=== PATIENT | female | born 1995 | race Two or more races ===

== ENCOUNTER 2018-03-17 15:56 | Inpatient (IN) | payer OTHER, SELFPAY ==
[2018-03-17 17:30] LABS: CONTROL LINE HCG INT CTR LINE PRESENT; HCG, SERUM QUALITATIVE NEGATIVE (NEGATIVE)
[2018-03-17 17:42] LABS: HEMATOCRIT 36.1 % (36.0-47.0); HEMOGLOBIN 11.2 g/dl (12.0-15.5); MEAN CORPUSCULAR HEMOGLOBIN 27.8 pg (27.0-33.0); MEAN CORPUSCULAR VOLUME 89.6 fl (80.0-96.0); PLATELET COUNT, AUTOMATED 255 10^3/uL (150-450); RED BLOOD COUNT 4.03 10^6/uL (4.00-5.40); RED CELL DISTRIBUTION WIDTH 13.7 % (11.5-14.5); WHITE BLOOD COUNT 7.8 10^3/uL (4.0-10.0)
[2018-03-17 17:44] LABS: ALBUMIN 3.8 GM/DL (3.2-5.2); ALBUMIN/GLOBULIN RATIO 1.06 (1.00-1.93); ALKALINE PHOSPHATASE 65 U/L (45-117); ALT/SGPT 16 U/L (12-78); ANION GAP 4 MEQ/L (8-16); AST/SGOT 9 U/L (7-37); BILIRUBIN,DIRECT < 0.1 MG/DL (0.0-0.2); BILIRUBIN,TOTAL 0.2 MG/DL (0.2-1.0); BLOOD UREA NITROGEN 14 MG/DL (7-18); CARBON DIOXIDE LEVEL 29 MEQ/L (21-32); CHLORIDE LEVEL 106 MEQ/L (98-107); ETHYL ALCOHOL (ETHANOL) < 0.003 % (0.000-0.010); GLUCOSE, FASTING 82 MG/DL (70-100); POTASSIUM SERUM 4.4 MEQ/L (3.5-5.1); SALICYLATE LEVEL < 1.7 MG/DL (5.0-30.0); SODIUM LEVEL 139 MEQ/L (136-145); TOTAL PROTEIN 7.4 GM/DL (6.4-8.2)
[2018-03-17 17:48] LABS: ACETAMINOPHEN LEVEL < 2.0 UG/ML (10.0-30.0)
[2018-03-17 18:01] LABS: AMPHETAMINES LEVEL URINE NEGATIVE (NEGATIVE); BARBITURATES URINE NEGATIVE (NEGATIVE); BENZODIAZEPINES URINE NEGATIVE (NEGATIVE); CANNABINOIDS URINE POSITIVE (NEGATIVE); COCAINE METABOLITE URINE NEGATIVE (NEGATIVE); METHADONE URINE NEGATIVE (NEGATIVE); OPIATES URINE NEGATIVE (NEGATIVE); PHENCYCLIDINE URINE NEGATIVE (NEGATIVE)
[2018-03-17] MEDS ORDERED: MOM 30ML SUSPENSION UDC PO ×2 (18:45)
[2018-03-17] MEDS ORDERED: MAALOX 30 ML SUSP *UDC PO ×2 (18:45)
[2018-03-17] MEDS ORDERED: ACETAMINOPHEN TAB 650MG DOSE (2X325MG) PO ×2 (18:45)
[2018-03-17] MEDS ORDERED: LORazepam 2 MG TAB PO ×2 (18:45)
[2018-03-17] MEDS: THIAMINE 100 MG TAB PO ×2 (19:25)
[2018-03-18] MEDS: THIAMINE 100 MG TAB PO ×4 (09:15→21:59)
[2018-03-18] MEDS: FOLIC ACID 1 MG TAB PO ×2 (09:15)
[2018-03-18] MEDS: MULTIVITAMINS/MINERALS THERAP 1 TAB PO ×2 (09:15)
[2018-03-18] MEDS: CitaloPRAM (CeleXA) 20 MG TAB PO ×2 (16:48)
[2018-03-19] MEDS: THIAMINE 100 MG TAB PO ×4 (08:14→20:59)
[2018-03-19] MEDS: MULTIVITAMINS/MINERALS THERAP 1 TAB PO ×2 (08:14)
[2018-03-19] MEDS: FOLIC ACID 1 MG TAB PO ×2 (08:14)
[2018-03-19] MEDS: CitaloPRAM (CeleXA) 20 MG TAB PO ×2 (15:08)
[2018-03-20] MEDS: THIAMINE 100 MG TAB PO ×2 (08:11)
[2018-03-20] MEDS: CitaloPRAM (CeleXA) 20 MG TAB PO ×2 (08:11)
[2018-03-20] MEDS: FOLIC ACID 1 MG TAB PO ×2 (08:11)
[2018-03-20] MEDS: MULTIVITAMINS/MINERALS THERAP 1 TAB PO ×2 (08:11)
[2018-03-20] MEDS: traZODone 50 MG TAB PO ×2 (22:48)
[2018-03-21] MEDS: MULTIVITAMINS/MINERALS THERAP 1 TAB PO ×2 (09:14)
[2018-03-21] MEDS: CitaloPRAM (CeleXA) 20 MG TAB PO ×2 (09:15)
[2018-03-21] MEDS: FOLIC ACID 1 MG TAB PO ×2 (09:15)
[2018-03-22] MEDS: FOLIC ACID 1 MG TAB PO ×2 (08:45)
[2018-03-22] MEDS: MULTIVITAMINS/MINERALS THERAP 1 TAB PO ×2 (08:45)
[2018-03-22] MEDS: CitaloPRAM (CeleXA) 10 MG TABLET PO ×2 (08:45)
[2018-03-22 14:37] LABS: BASO # 0.1 10^3/uL (0.0-0.2); BASO % 0.7 % (0.0-1.0); EOS # 0.1 10^3/uL (0.0-0.50); EOS % 1.2 % (0.0-3.0); HEMATOCRIT 37.7 % (36.0-47.0); HEMOGLOBIN 11.9 g/dl (12.0-15.5); IMMATURE GRANULOCYTE % 0.3 % (0-3.0); LYMPH # 2.4 10^3/uL (1.5-6.5); LYMPH % 30.8 % (24.0-44.0); MEAN CORPUSCULAR HGB CONC 31.6 g/dl (32.0-36.5); MEAN CORPUSCULAR VOLUME 88.7 fl (80.0-96.0); MONO # 0.6 10^3/uL (0.0-0.8); MONO % 7.3 % (0.0-5.0); NEUTROPHILS # 4.6 10^3/uL (1.8-7.7); NEUTROPHILS % 59.7 % (36.0-66.0); PLATELET COUNT, AUTOMATED 233 10^3/uL (150-450); RED BLOOD COUNT 4.25 10^6/uL (4.00-5.40); RED CELL DISTRIBUTION WIDTH 13.9 % (11.5-14.5); WHITE BLOOD COUNT 7.6 10^3/uL (4.0-10.0)
[2018-03-22 15:01] LABS: ALBUMIN 3.8 GM/DL (3.2-5.2); ALBUMIN/GLOBULIN RATIO 1.06 (1.00-1.93); ALKALINE PHOSPHATASE 52 U/L (45-117); ALT/SGPT 11 U/L (12-78); ANION GAP 7 MEQ/L (8-16); AST/SGOT 10 U/L (7-37); BILIRUBIN,TOTAL 0.2 MG/DL (0.2-1.0); BLOOD UREA NITROGEN 16 MG/DL (7-18); CALCIUM LEVEL 8.8 MG/DL (8.5-10.1); CARBON DIOXIDE LEVEL 28 MEQ/L (21-32); CHLORIDE LEVEL 105 MEQ/L (98-107); CREATININE FOR GFR 0.94 MG/DL (0.55-1.30); GLUCOSE, FASTING 88 MG/DL (70-100); POTASSIUM SERUM 4.3 MEQ/L (3.5-5.1); SODIUM LEVEL 140 MEQ/L (136-145); TOTAL PROTEIN 7.4 GM/DL (6.4-8.2)
[2018-03-22] MEDS: traZODone 50 MG TAB PO ×2 (22:28)
[2018-03-23] MEDS: FOLIC ACID 1 MG TAB PO ×2 (08:29)
[2018-03-23] MEDS: MULTIVITAMINS/MINERALS THERAP 1 TAB PO ×2 (08:30)
[2018-03-23] MEDS: CitaloPRAM (CeleXA) 10 MG TABLET PO ×2 (08:30)
== END 2018-03-23 09:55 | disposition home or self-care (01) | DRG 885 ==
LOC: M ED 15:56 → M ED INP 18:33 → M PSY 20:21
DX: F33.2 Major depressive disorder, recurrent severe without psychotic features (principal); F10.10 Alcohol abuse, uncomplicated; F60.3 Borderline personality disorder; F34.1 Dysthymic disorder; Z91.5 Personal history of self-harm; Z81.3 Family history of other psychoactive substance abuse and dependence; Z81.8 Family history of other mental and behavioral disorders; Z81.1 Family history of alcohol abuse and dependence

== ENCOUNTER 2018-09-02 19:07 | Emergency (ER) | payer OTHER, SELFPAY ==
[2018-09-02] MEDS ORDERED: NS 1,000 ML IV (20:30)
== END 2018-09-02 21:04 | disposition home or self-care (01) ==
LOC: M ED 19:07
DX: E86.0 Dehydration (principal)
CPT/HCPCS: 99284

== ENCOUNTER 2019-02-17 05:51 | Inpatient (IN) | payer OTHER ==
[~2019-02-17] VITALS: Ht 160 cm; Wt 70.2 kg
[2019-02-17] VITALS (37 sets, daily range): BP systolic 106–147; BP diastolic 57–92
[~2019-02-17 05:51] MED LIST: CELE10TA PO; FOLI1TAB11 PO; VITMTA PO
[2019-02-17] MEDS ORDERED: LACTATED RINGER'S 1000 ML IV STA (06:21)
[2019-02-17 06:36] LABS: HEMATOCRIT 28.6 % (36.0-47.0); HEMOGLOBIN 8.7 g/dl (12.0-15.5); MEAN CORPUSCULAR HEMOGLOBIN 26.1 pg (27.0-33.0); MEAN CORPUSCULAR HGB CONC 30.4 g/dl (32.0-36.5); MEAN CORPUSCULAR VOLUME 85.9 fl (80.0-96.0); PLATELET COUNT, AUTOMATED 228 10^3/uL (150-450); RED BLOOD COUNT 3.33 10^6/uL (4.00-5.40)
[2019-02-17] MEDS ORDERED: miSOPROStol 25 MCG 1/4 TAB (S0191) PO ONE (07:45)
--- NOTE | 2019-02-17 08:17 | HPEPDOC ---
Obstetrical History & Physical General Date of Admission February 17, 2019 at 05:51 History of Present Illness 23 yo at 41+1 weeks gestation by 8+4 week US on [id number] presents to L&D for an IOL for late term . She reports feeling well this AM and denies any complaints. Her is uncomplicated. Chief Complaint: Induction of labor Information Provided By: Patient Age: 23 : 1 Term: 0 Pre-term: 0 Abortions: 0 Livin Care Care: Good Care Dating Final EDC: February 09, 2019 Final EDC for Daily Update: February 09, 2019 Final EDC by: LMP, 1st trimester (US) (ALONDRA of [id number] by 8+4 week US on [id number]) 1st Trimester Date: Jul 04, 2018 Antepartum Course Diagnos(e)s Rh negative --> FOB Rh negative as well. Patient has received rhogam though History of depression ---> self DC'ed celexa in early and has been stable. Past Medical History Past Obstetrical History : Past Obstetrical History: Primgravida CLASSIFIED AD TAKER History: No pertinent history Past Medical History Medical History Rh negative History of depression Surgical History: Denies/None Family History Significant Family History: No pertinent family hx Family History Non contributory Social History Marital Status: Family situation: Spouse/partner home Psychosocial History: Depression (History of depression. Stable without meds) * Smoker: non-smoker Alcohol: Denies Drugs: denies Imunizations Tdap status: current Influenza Status: needs Allergies Coded Allergies: No Known Allergies (Unverified , 02/17/19) Medications Scheduled Citalopram Hydrobromide (Celexa) 10 Mg Tab, 10 MG PO QAM for depression Folic Acid (Folic Acid) 1 Mg Tab, 1 MG PO DAILY for withdrawals Multivitamins (Thera M Plus Tablet) 1 Tab Tab, 1 TAB PO DAILY for withdrawals Physical Examination Physical Examination GENERAL: Alert and oriented times three. ABDOMEN: Gravid and non-tender to touch. FETUS: Is vertex (VTX) by sterile vaginal examination (SVE) EXTREMITIES: No edema. Vital Signs/I&O Vital Signs Date Time Temp Pulse Resp B/P (MAP) Pulse Ox O2 Delivery O2 Flow Rate FiO2 02/17/19 07:15 98.4 78 16 122/74 (90) Laboratory Data 24H LABS Laboratory Tests 2 02/17/19 05:55: Serology Scanned Report Hepatitis B Testing 02/17/19 06:24: Nucleated Red Blood Cells % (auto) 0.2H CBC/BMP Laboratory Tests 02/17/19 06:24 Red Blood Count 3.33 L, Mean Corpuscular Volume 85.9, Mean Corpuscular Hemoglobin 26.1 L, Mean Corpuscular Hemoglobin Concent 30.4 L, Red Cell Distribution Width 16.2 H Pertinent Laboratoy Data Blood Type: O- RBC Antibody Screen: Negative HIV: Negative Hepatitis B: Negative Hepatitis C: Unknown Rapid Plasma Reagin: Nonreactive Rubella: Immune Varicella: Nonreactive (Patient listed as varicella immune, however varicella IgG was negative) Chlamydia/Gonorrhea: Negative Group B Streptococcus: Negative Quad Screen Test: Unknown Cystic Fibrosis: Unknown Glucose Tolerance Test: 121 Anatomy Ultrasound Placenta Location: Posterior Normal Anatomy: Yes Placenta Previa: No Vaginal Examination Dilation: 1cm Effacement: 30% Station: -3 Cervical Consistency: Firm Cervical Position: Posterior Presentation: Cephalic presentation Position: Vertex (occiput) Assessment Heart Rate (FHR): 120 Variability: Moderate Accelerations: Positive Decelerations: None Tocometer Contractions: Yes Frequency: irregular Duration: less than 60 seconds Strength: palpated as mild Assessment/Plan Assessment 23 yo at 41+1 weeks gestation presents for an IOL for late term . Plan Admit for IOL. Apply IV fluids. GBS negative. Clear liquid diet. Cervix unfavorable. Membrane stripping performed and then PO cytotec administered. Patient may have epidural if desired. Anticipate . DO RADHA Tello CHRISTOPHER J. DO February 17, 2019 08:17
[2019-02-17] MEDS ORDERED: miSOPROStol 50 MCG 1/2 TAB (S0191) PO PRN (09:45)
[2019-02-17] MEDS ORDERED: LR 1,000 ML IV SCH (14:14)
[2019-02-17] MEDS ORDERED: OXYTOCIN DRIP 30 UNITS in APPROPRIATE DILUENT 1 EA IV SCH (14:15)
[2019-02-17] MEDS ORDERED: FENTANYL 2MCG/ML ROPIVACAINE 0.2% IN 0.9% NACL 100ML IVBAG As Ordered ONE (16:20)
[2019-02-17] MEDS ORDERED: EPIDURAL/PCA KEYS XX PRN (17:45)
[2019-02-17] MEDS ORDERED: NALOXONE INJ 0.4 MG/1 ML VIAL (J2310) IV PRN (17:45)
[2019-02-17] MEDS ORDERED: ePHEDrine SULFATE 25 MG/5 ML(5MG/ML) SYRINGE IV PRN (17:45)
[2019-02-17] MEDS ORDERED: ONDANSETRON 4MG/2ML VIAL (J2405) IV PRN (17:45)
[2019-02-17] MEDS ORDERED: EPIDURAL COMMENT XX SCH (17:45)
[2019-02-17] MEDS ORDERED: diphenhydrAMINE INJ 50MG/ML VIAL (J1200) IV PRN (17:45)
[2019-02-17] MEDS ORDERED: FENTANYL/ROPIVACAINE/NACL BAG 100 ML EPIDURAL SCH (17:45)
[2019-02-17] MEDS ORDERED: LACTATED RINGER'S 1000 ML IV PRN (17:45)
[2019-02-17] MEDS ORDERED: REFRIGERATOR IV KEYS XX PRN (17:45)
--- NOTE | 2019-02-17 19:05 | IPNPDOC ---
Text Note Date of Service The patient was seen on 02/17/19. NOTE Cat 1 NST throughout other than 3 lates that reponded to fluid and pos change in the last hour Pitocin at 8 mu/min. 4-5 hrs ago was a tight 3 cm with a ballotable vtx, 3 hrs ago transitioned from 2 doses miso to pitocin. Now on 8 mu/min. Cx now 3-4/75/-2, vtx well applied now. Recheck in 3-4 hrs, sooner prn Sessions A-FIB/PRATIBHA A-FIB History Current/History of A-Fib/PAF?: No VS,Fishbone, I+O VS, Fishbone, I+O Laboratory Tests 02/17/19 06:24 Red Blood Count 3.33 L, Mean Corpuscular Volume 85.9, Mean Corpuscular Hemoglobin 26.1 L, Mean Corpuscular Hemoglobin Concent 30.4 L, Red Cell Distribution Width 16.2 H Vital Signs Date Time Temp Pulse Resp B/P (MAP) Pulse Ox O2 Delivery O2 Flow Rate FiO2 02/17/19 18:04 80 112/71 (85) 02/17/19 17:07 99.4 16 SESSIONS,MARYSE Coyne MD February 17, 2019 19:05
--- NOTE | 2019-02-17 22:39 | IPNPDOC ---
Text Note Date of Service The patient was seen on 02/17/19. NOTE Cat 2 NST due to some positional lates, but none for some time, mod amaris Pitocin at 8 mu/min. Cx now 4-/-1, vtx well applied now, AROM but with very little fluid, vtx well applied, likely SROM earlier wih little fluid noted Recheck in ~2 hrs, sooner prn Sessions A-FIB/PRATIBHA A-FIB History Current/History of A-Fib/PAF?: No VS,Fishbone, I+O VS, Fishbone, I+O Laboratory Tests 02/17/19 06:24 Red Blood Count 3.33 L, Mean Corpuscular Volume 85.9, Mean Corpuscular Hemoglobin 26.1 L, Mean Corpuscular Hemoglobin Concent 30.4 L, Red Cell Distribution Width 16.2 H Vital Signs Date Time Temp Pulse Resp B/P (MAP) Pulse Ox O2 Delivery O2 Flow Rate FiO2 02/17/19 18:04 80 112/71 (85) 02/17/19 17:07 99.4 16 SESSIONS,MARYSE Coyne MD February 17, 2019 22:39
[2019-02-18] VITALS (16 sets, daily range): BP systolic 106–149; BP diastolic 57–96
--- NOTE | 2019-02-18 02:06 | IPNPDOC ---
Text Note Date of Service The patient was seen on 02/18/19. NOTE FHT Cat 2, mod amaris but intermittent isolated lates, pos accels still Pit at 10, reg ctx's Cx /0 Doing well, rechec in 2 hrs, sooner prn Sessions A-FIB/PRATIBHA A-FIB History Current/History of A-Fib/PAF?: No VS,Fishbone, I+O VS, Fishbone, I+O Laboratory Tests 02/17/19 06:24 Red Blood Count 3.33 L, Mean Corpuscular Volume 85.9, Mean Corpuscular Hemoglobin 26.1 L, Mean Corpuscular Hemoglobin Concent 30.4 L, Red Cell Distribution Width 16.2 H Vital Signs Date Time Temp Pulse Resp B/P (MAP) Pulse Ox O2 Delivery O2 Flow Rate FiO2 02/17/19 22:45 81 18 121/73 (89) 02/17/19 22:02 99.4 I&O- Last 24 Hours up to 6 AM 02/18/19 06:00 Intake Total 4022 ml Output Total 1650 ml Balance 2372 ml MINERVA,MARYSE Coyne MD February 18, 2019 02:05
[2019-02-18] MEDS ORDERED: OXYTOCIN DRIP 30 UNITS in APPROPRIATE DILUENT 1 EA IV SCH (04:03)
--- NOTE | 2019-02-18 04:12 | DNPDOC ---
[facility] Delivery Note Delivery Note DATE OF DELIVERY: [id number] PREDELIVERY DIAGNOSIS: 41 2/7 weeks' gestation and labor. POST DELIVERY DIAGNOSIS: Delivered. 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 Palma ANESTHESIA: epidural ESTIMATED BLOOD LOSS: 200 mL. FINDINGS: weight pending female , Score 8/9 DELIVERY SUMMARY: Called to room, C/C/pushing well. Straight OA. Del'd the vtx and both shoulders w/o delay, term. mec. noted. Vigorous female to abd. Cord C/C by FOB. Cord blood. Placenta intact, fundal massage, firm, pit going 999. Bilat vag wall abrasions closed with 4-0 vicryl. Good hemostasis, cosmesis. Sessions MD PALMA,MARYSE Coyne MD February 18, 2019 04:12
[2019-02-18] MEDS ORDERED: IBUPROFEN 800 MG TAB PO PRN (04:15)
[2019-02-18] MEDS ORDERED: ACETAMINOPHEN TAB 650MG DOSE (2X325MG) PO PRN (04:15)
[2019-02-18] MEDS ORDERED: DIBUCAINE 1% OINTMENT 30GM TOP PRN (04:15)
[2019-02-18] MEDS ORDERED: MEASLES,MUMPS,RUBELLA VACCINE INJ (MMR-II) (90707) SC SCH (04:15)
[2019-02-18] MEDS ORDERED: RHOGAM 300 MCG (1500 IU) INJ (J2790) IM SCH (04:15)
[2019-02-18] MEDS: DOCUSATE SODIUM 100 MG CAP PO SCH ×2 (09:18→21:15)
[2019-02-18] MEDS: PRENATAL VITAMINS CHEWABLE TABLET PO SCH (09:18)
[2019-02-18] MEDS: CitaloPRAM (CeleXA) 10 MG TABLET PO SCH (11:45)
[2019-02-19 06:07] VITALS: BP 120/55
--- NOTE | 2019-02-19 06:39 | IPNPDOC ---
Text Note Date of Service The patient was seen on 02/19/19. NOTE PPD1 States feeling well, pain controlled with prescribed meds. Baby bonding and feeding well. No heavy VB. Lochia slowing. Ambulatory. Tolerating PO without issues. Voiding spont. No CP/LP/SOB. VSSAF NAD A&O LE no C/C/E Ut at U-2, firm a/p: Doing well. Cont routine care. D/C likely tomorrow or the next day. Sessions A-FIB/PRATIBHA A-FIB History Current/History of A-Fib/PAF?: No VS,Fishbone, I+O VS, Fishbone, I+O Vital Signs Date Time Temp Pulse Resp B/P (MAP) Pulse Ox O2 Delivery O2 Flow Rate FiO2 02/19/19 06:07 97.8 69 18 120/55 (76) 02/18/19 18:00 98 SESSIONS,MARYSE Coyne MD February 19, 2019 06:39
[2019-02-19] MEDS: DOCUSATE SODIUM 100 MG CAP PO SCH ×2 (08:16→21:00)
[2019-02-19] MEDS: CitaloPRAM (CeleXA) 10 MG TABLET PO SCH (08:16)
[2019-02-19] MEDS: PRENATAL VITAMINS CHEWABLE TABLET PO SCH (08:16)
[2019-02-19 17:26] VITALS: BP 111/65
[2019-02-20 03:20] VITALS: BP 116/61
[2019-02-20 06:15] VITALS: BP 133/65
--- NOTE | 2019-02-20 08:09 | IPNPDOC ---
Progress Note Date of Service: February 20, 2019 Day#: 2 Progress Note SUBJECT: Lawrence is a 23yo [id number] s/p uncomplicated at 41w3d on 02/18 at 03:41 after undergoing IOL for LTG, doing well day # 2. She has been ambulating, voiding spontaneously without issue and tolerating regular diet. Breast feeding without issue. Reports lochia is like a light period. No f/c/n/v/CP/SOB. OBJECTIVE: VITAL SIGNS: Within normal limits, afebrile. Alert and oriented times three. Abdomen: Fundus firm at U-2. Soft, NTTP. ASSESSMENT: Lawrence is a 23yo [id number] s/p uncomplicated at 41w3d on 02/18 at 03:41 after undergoing IOL for LTG, doing well day # 2. Vitals within normal limits, afebrile, hemodynamically stable with no evidence of infection. PLAN: 1. Discharge to home today. 2. Tylenol and Motrin for pain. 3. Encourage breast feeding and ambulation. 4. 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 Routine PP visit in 6 weeks in clinic. 6. Discussed return precautions at length. Dr. Julieta Frederick MD VS, I&O, 24H, Fishbone Vital Signs/I&O Vital Signs Date Time Temp Pulse Resp B/P (MAP) Pulse Ox O2 Delivery O2 Flow Rate FiO2 02/20/19 06:15 98.4 87 17 133/65 (87) 98 Julieta Frederick MD February 20, 2019 08:09
[2019-02-20] MEDS ORDERED: IBUP80TA PO (08:13)
[2019-02-20] MEDS: DOCUSATE SODIUM 100 MG CAP PO SCH (09:35)
[2019-02-20] MEDS: PRENATAL VITAMINS CHEWABLE TABLET PO SCH (09:35)
[2019-02-20] MEDS: CitaloPRAM (CeleXA) 10 MG TABLET PO SCH (09:36)
== END 2019-02-20 11:20 | disposition home or self-care (01) | DRG 807 ==
LOC: M LDI 05:51 → M OBS 02-18 06:16
PROVIDERS: ADMIT Obstetrics & Gynecology; ATTEND Obstetrics & Gynecology
PROC: 3E033VJ Introduction of Other Hormone into Peripheral Vein, Percutaneous Approach (ICD-10-PCS; 2019-02-17)
PROC: 10E0XZZ Delivery of Products of Conception, External Approach (ICD-10-PCS; principal; 2019-02-18)
DX: O48.0 Post-term pregnancy (principal); Z37.0 Single live birth; Z3A.41 41 weeks gestation of pregnancy